=== PATIENT | male | born 1950 | race Hispanic/Latino ===

== ENCOUNTER 2018-05-11 06:55 | Emergency (ER) | payer MEDICARE ==
[2018-05-11] MEDS ORDERED: ZOFRAN IV ONE (07:53)
[2018-05-11] MEDS ORDERED: MORPHINE IV ONE (07:53)
[2018-05-11 08:08] LABS: Basophils # (Auto) 0.1 K/mm3 (0.0-0.1); Eosinophils # (Auto) 0.1 K/mm3 (0.0-0.4); Eosinophils % (Auto) 1.3 % (0.0-4.3); Hematocrit 50.6 % (35.5-45.6); Lymphocytes # (Auto) 1.7 K/mm3 (1.2-5.4); Lymphocytes % (Auto) 22.8 % (13.4-35.0); Mean Corpuscular HGB Conc 34 % (32-34); Mean Corpuscular Hemoglobin 31 pg (28-32); Mean Corpuscular Volume 92 fl (84-94); Monocytes # (Auto) 0.5 K/mm3 (0.0-0.8); Monocytes % (Auto) 7.2 % (0.0-7.3); Platelet Count 192 K/mm3 (140-440); Red Blood Count 5.49 M/mm3 (3.65-5.03); Red Cell Distribution Width 16.3 % (13.2-15.2)
[2018-05-11 08:12] LABS: INR 1.19 (0.87-1.13)
[2018-05-11 08:19] LABS: Alanine Aminotransferase 9 units/L (7-56); Albumin 4.3 g/dL (3.9-5); BUN/Creatinine Ratio 14; Blood Urea Nitrogen 14 mg/dL (9-20); Calcium 9.8 mg/dL (8.4-10.2); Hemolysis Index 27
[2018-05-11 08:24] LABS: Partial Thromboplastin Time 31.1 Sec. (24.2-36.6)
--- NOTE | 2018-05-11 08:37 | Emergency Department Report ---
ED General Adult HPI - General Chief complaint: Multiple Trauma Stated complaint: FALL Time Seen by Provider: 05/11/18 07:50 Source: patient Mode of arrival: Stretcher Limitations: No Limitations - History of Present Illness Initial comments: 68-year-old male with a history of dementia, atrial fibrillation on several toe , and cardiomyopathy who recently was discharged at the chest pain workup yesterday from this hospital who presents after having a fall down the entire flight of carpeted stair step. Patient states he does not know how many steps he fell down. Patient complains of a headache and neck pain. Patient complains of pain in his right hip as well as bilateral knees and right shoulder. Since states he did not have any chest pain or dizziness prior to the fall and does not know what happened when he fell. Severity scale (0 -10): 6 - Related Data Home Medications Medication Instructions Recorded Confirmed Last Taken Aspirin [Adult Aspirin] 81 mg PO QAM 05/09/18 05/09/18 Unknown Atorvastatin Calcium [Lipitor] 10 mg PO HS 05/09/18 05/09/18 Unknown Furosemide [Lasix] 20 mg PO QAM 05/09/18 05/09/18 Unknown Gabapentin [Neurontin] 600 mg PO HS 05/09/18 05/09/18 Unknown ISOSORBIDE MONOnitrate [Imdur ER] 60 mg PO QAM 05/09/18 05/09/18 Unknown Lisinopril [Zestril] 10 mg PO QAM 05/09/18 05/09/18 Unknown Lubiprostone (Nf) [Amitiza (Nf)] 24 mcg PO BIDWM 05/09/18 05/09/18 Unknown Omeprazole 20 mg PO QAM 05/09/18 05/09/18 Unknown Potassium Chloride [K-Dur] 10 meq PO QAM 05/09/18 05/09/18 Unknown Rivaroxaban [Xarelto] 20 mg PO QPM 05/09/18 05/09/18 Unknown Tamsulosin HCl [Flomax] 0.4 mg PO HS 05/09/18 05/09/18 Unknown Allergies Allergy/AdvReac Type Severity Reaction Status Date / Time No Known Allergies Allergy Unverified 05/09/18 10:39 ED Review of Systems ROS: Stated complaint: FALL Other details as noted in HPI Constitutional: denies: chills, fever Eyes: denies: eye pain, eye discharge, vision change ENT: denies: ear pain, throat pain Respiratory: denies: cough, shortness of breath, wheezing Cardiovascular: denies: chest pain, palpitations Endocrine: no symptoms reported Gastrointestinal: denies: abdominal pain, nausea, diarrhea Genitourinary: denies: urgency, dysuria Musculoskeletal: myalgia, other (back pain). denies: back pain, joint swelling , arthralgia Skin: denies: rash, lesions Neurological: headache. denies: weakness, paresthesias Psychiatric: denies: anxiety, depression Hematological/Lymphatic: denies: easy bleeding, easy bruising ED Past Medical Hx - Past Medical History Hx Hypertension: Yes Hx Heart Attack/AMI: Yes Hx Diabetes: Yes Hx COPD: Yes Hx Dementia: Yes Additional medical history: AFIB - Surgical History Hx Coronary Stent: Yes Hx Open Heart Surgery: Yes Additional Surgical History: Tripple bypass - Social History Smoking Status: Current Every Day Smoker Substance Use Type: None - Medications Home Medications: Home Medications Medication Instructions Recorded Confirmed Last Taken Type Aspirin [Adult Aspirin] 81 mg PO QAM 05/09/18 05/09/18 Unknown History Atorvastatin Calcium [Lipitor] 10 mg PO HS 05/09/18 05/09/18 Unknown History Furosemide [Lasix] 20 mg PO QAM 05/09/18 05/09/18 Unknown History Gabapentin [Neurontin] 600 mg PO HS 05/09/18 05/09/18 Unknown History ISOSORBIDE MONOnitrate [Imdur ER] 60 mg PO QAM 05/09/18 05/09/18 Unknown History Lisinopril [Zestril] 10 mg PO QAM 05/09/18 05/09/18 Unknown History Lubiprostone (Nf) [Amitiza (Nf)] 24 mcg PO BIDWM 05/09/18 05/09/18 Unknown History Omeprazole 20 mg PO QAM 05/09/18 05/09/18 Unknown History Potassium Chloride [K-Dur] 10 meq PO QAM 05/09/18 05/09/18 Unknown History Rivaroxaban [Xarelto] 20 mg PO QPM 05/09/18 05/09/18 Unknown History Tamsulosin HCl [Flomax] 0.4 mg PO 05/09/18 05/09/18 Unknown History ED Physical Exam - General Limitations: No Limitations General appearance: alert, other (uncom) - Head Head exam: Present: atraumatic, normocephalic - Eye Eye exam: Present: normal appearance - ENT ENT exam: Present: mucous membranes dry - Neck Neck exam: Present: tenderness (in c5 region) - Respiratory Respiratory exam: Present: normal lung sounds bilaterally. Absent: respiratory distress - Cardiovascular Cardiovascular Exam: Present: regular rate, normal rhythm, other (midline CABG scar; ). Absent: systolic murmur, diastolic murmur, rubs, gallop - GI/Abdominal GI/Abdominal exam: Present: soft, normal bowel sounds - Rectal Rectal exam: Present: normal inspection - exam: Present: normal inspection, other (no scrotal tenderness) - Extremities Exam Extremities exam: Present: other (bruising noted to the right knee with full range of motion; tenderness noted in the L3-L4 region; tenderness noted in the T10 region; tenderness in the right shoulder region with range of motion) - Back Exam Back exam: Present: normal inspection - Neurological Exam Neurological exam: Present: alert, oriented X3 - Psychiatric Psychiatric exam: Present: normal affect, normal mood - Skin Skin exam: Present: warm, dry, intact, normal color. Absent: rash ED Course Vital Signs 05/11/18 05/11/18 05/11/18 07:27 07:36 07:45 Temperature 97.6 F 97.5 F L Pulse Rate 64 113 H 100 H Respiratory 18 21 25 H Rate Blood Pressure 156/102 143/87 Blood Pressure 140/95 [Right] O2 Sat by Pulse 96 98 98 Oximetry 05/11/18 05/11/18 05/11/18 08:00 09:32 09:46 Temperature 97.5 F L Pulse Rate 100 H 100 H Respiratory 23 17 20 Rate Blood Pressure 135/89 Blood Pressure 138/90 [Right] O2 Sat by Pulse 97 96 Oximetry ED Medical Decision Making - Lab Data Result diagrams: 05/11/18 07:35 05/11/18 07:35 - Radiology Data Radiology results: report reviewed - Medical Decision Making Patient was immediately assessed by myself upon presentation to the emergency room. Patient had a fast exam performed by myself which show no evidence of fluid in Morison's pouch, splenorenal recess, or pouch of Kalyan. Patient is noted to have a CT of the head which showed subdural hematoma. Patient to be transferred to [facility], service for continued management and treatment. Patient also given Keppra while here in the emergency department. Sent to be transferred to [facility] under Dr. Menendez. - Differential Diagnosis Intracranial hemorrhage; abdominal hematoma; electrolyte abnormality; fract Critical Care Time: Yes Critical care time in (mins) excluding proc time.: 50 Critical care attestation.: If time is entered above; I have spent that time in minutes in the direct care of this critically ill patient, excluding procedure time. The care time includes time spent with frequent reassessments, bedside consultation, and direct bedside care. ED Disposition Clinical Impression: Fall (on) (from) other stairs and steps, initial encounter, Acute subdural hematoma, CHF (congestive heart failure), Contusion Disposition: [id number]/TX-[id number] ANOTHER TYPE HLTHCARE Is pt being admited?: No Condition: Critical Referrals: PRIMARY CARE, [Primary Care Provider] - 3-5 Days Time of Disposition: 10:50
--- NOTE | 2018-05-11 08:39 | Cat Scan Report ---
CT HEAD WITHOUT CONTRAST: HISTORY: Trauma. TECHNIQUE: Sequential 2.5mm CT images. COMPARISON: none. FINDINGS: An acute subdural hematoma is noted along the superior sagittal falx measuring up to 1 cm in thickness. There is no evidence for intraparenchymal hemorrhage or subarachnoid hemorrhage. Mild diffuse cortical volume loss and mild chronic white matter changes are identified. No evidence for mass, chronic infarct or hydrocephalus. The posterior fossa is within normal limits. The calvarium is intact. The visualized sinuses are well-aerated. IMPRESSION: Acute subdural hemorrhage as described. These findings were discussed with Dr. Fu in the emergency department at 0838 hours.
[2018-05-11] MEDS ORDERED: KEPPRA 1,000 MG in NACL 0.9% 100 ML IV ONE (08:40)
--- NOTE | 2018-05-11 08:41 | Cat Scan Report ---
CT ABDOMEN PELVIS WITH CONTRAST: HISTORY: Trauma. COMPARISON: none. TECHNIQUE: Helical CT in 1.25mm intervals following IV contrast. Sagittal and coronal reconstructions. FINDINGS: Lung bases: Mild cardiomegaly. The visualized lung bases are clear. Liver: Normal. Biliary system: A solitary 5 mm gallstone is identified. No biliary dilatation. Pancreas: Normal. Spleen: Normal. Kidneys/ureters/bladder: Mild cortical thinning is evident in both kidneys. No evidence for focal renal lesion or hydronephrosis. The collecting systems and bladder are unremarkable. The prostate gland is normal size. Adrenal glands: Normal. Aorta: Mild diffuse calcifications. No aneurysm or stenosis. Intestines: Within normal limits given no oral contrast was administered. Appendix: Normal. Pelvic viscera: Normal. Ascites: None. Adenopathy: None. Musculoskeletal: Mild osteopenia. Moderate lumbar spondylosis is noted. Posterior fusion of the lumbar spine from L4-S1. No acute fractures appreciated. IMPRESSION: No acute abdominal injury. Chronic findings as outlined above.
[2018-05-11] MEDS ORDERED: KEPPRA 1,000 MG/NS 0.75% 100ML 1,000 MG/100 ML BAG IV ONE (09:35)
[2018-05-11 09:53] VITALS: BP 138/90
--- NOTE | 2018-05-11 09:57 | XRay Report ---
THORACIC SPINE THREE VIEWS: 05/11/18 08:45 CLINICAL: Trauma and back pain. FINDINGS: Mild dextroscoliosis and moderate multilevel anterior and lateral spondylosis. No fracture. Pedicles are intact. IMPRESSION: Scoliosis and moderate degenerative change. No apparent traumatic injury.
--- NOTE | 2018-05-11 10:00 | XRay Report ---
AP CHEST : 05/11/18 08:45 CLINICAL: Trauma and chest pain. COMPARISON:05/09/18 FINDINGS: Stable cardiomegaly.The pulmonary vessels are normal. The lungs are normally expanded and clear. No airspace disease or pleural effusion. No pneumothorax. Mediastinal surgical clips. The bones and soft tissues are normal. No fracture identified. IMPRESSION: Cardiomegaly but no CHF. No apparent traumatic injury.
--- NOTE | 2018-05-11 10:02 | XRay Report ---
XRAY CERVICAL SPINE SERIES THREE VIEWS: 05/11/18 08:45 CLINICAL: Trauma and neck pain. FINDINGS: Moderate degenerative disc disease at C4-5, C5-6 and C6-7. No fracture or subluxation. Moderate multilevel facet joint disease. The odontoid and C1 are intact. Normal soft tissues and airway. IMPRESSION: Moderate degenerative disc disease. No apparent traumatic injury.
--- NOTE | 2018-05-11 10:03 | XRay Report ---
XRAY RIGHT SHOULDER THREE VIEWS: 05/11/18 06:55:00 CLINICAL: Trauma and pain. FINDINGS: No fracture or dislocation. Mild acromioclavicular joint arthritis and mild glenohumeral joint arthritis. Normal soft tissues. IMPRESSION: Mild arthritis and otherwise normal.
--- NOTE | 2018-05-11 10:06 | XRay Report ---
XRAY BILATERAL KNEE THREE VIEWS EACH: 05/11/18 08:45 CLINICAL: Trauma and bilateral knee pain. FINDINGS: Right: No fracture or dislocation. Moderate osteoarthritis of the medial joint space with narrowing of the joint space and osteophytes. Widening of the lateral joint space. Patellofemoral joint osteoarthritis with osteophytes. No joint effusion. The quadriceps insertion enthesophyte. Arterial calcifications and surgical clips in the soft tissues. Left: No fracture or dislocation. Severe osteoarthritis of the medial joint space with loss of the joint space and large medial osteophytes. Widening of the lateral joint space with lateral osteophytes. Patellofemoral joint osteoarthritis with osteophytes. No joint effusion.Surgical clips in the soft tissues. IMPRESSION: Bilateral osteoarthritis and no apparent traumatic injury.
== END 2018-05-11 09:46 | disposition other institution (70) ==
LOC: ED 06:55
DX: S06.5X9A Traumatic subdural hemorrhage with loss of consciousness of unspecified duration, initial encounter (principal); S80.01XA Contusion of right knee, initial encounter; M54.2 Cervicalgia; I11.0 Hypertensive heart disease with heart failure; I50.9 Heart failure, unspecified; I25.2 Old myocardial infarction; E11.9 Type 2 diabetes mellitus without complications; F03.90 Unspecified dementia, unspecified severity, without behavioral disturbance, psychotic disturbance, mood disturbance, and anxiety; J44.9 Chronic obstructive pulmonary disease, unspecified; F17.200 Nicotine dependence, unspecified, uncomplicated; Z98.890 Other specified postprocedural states; W10.9XXA Fall (on) (from) unspecified stairs and steps, initial encounter; Y93.89 Activity, other specified; Y92.89 Other specified places as the place of occurrence of the external cause; Y99.8 Other external cause status
CPT/HCPCS: 36415; 70450; 71045; 72040; 72070; 73030; 73562; 74177; 80053; 82550; 84484; 85025; 85610; 85730; 96365; 96375; 99291; G0480; J1953; J2270; J2405; Q9967; 80320